=== PATIENT | female | born 1955 | race African-American/Black ===

== ENCOUNTER → 2017-06-30 | Outpatient (CLI) | payer BC ==
[2015-11-14 11:19] VITALS: BP 108/69
[~2017-06-30] MED LIST: ASPI325T11 PO; CARV6.252 PO; CLOP75TA PO; DILT240C32 PO; FURO20TA3 PO; GLIM4TAB2 PO; HYDR12.58 PO; INSU100I17 SQ; INSU100I27 SQ; INSU100V8 SQ; LISI-338 PO; LOSA50TA6 PO; METF500T4 PO; SIMV40TA3 PO
--- NOTE | 2017-06-30 12:18 | CARD ---
APPROVED REPORT EXAM: Two-dimensional and M-mode echocardiogram with Doppler and color Doppler. Other Information Quality : Average INDICATION Cardiac Disease: CAD 2D DIMENSIONS Left Atrium(2D)3.2 (1.6-4.0cm)IVSd1.3 (0.7-1.1cm) Aortic Root(2D)2.6 (2.0-3.7cm)LVDd3.6 (3.9-5.9cm) LVOT Diameter1.9 (1.8-2.4cm)PWd1.2 (0.7-1.1cm) LVDs2.4 (2.5-4.0cm)FS (%) 34.9 % SV35.7 mlLVEF(%)65.1 (>50%) Aortic Valve AoV Peak Gerry.169.8cm/sAoV VTI28.9cm AO Peak GR.11.5mmHgLVOT Peak Gerry.100.5cm/s AO Mean GR.6mmHgAVA (VMAX)1.62cm2 VICKEY (VTI)1.80cm2 Mitral Valve MV E Tcjhkhki59.8cm/sMV DECEL NOUI539rk MV A Byzwhsud938.9cm/sE/A Ratio0.8 Tricuspid Valve TR P. Tmhtyxcr595qt/sRAP NVHEYNIG6glQm TR Peak Gr.20ipGwTDUS92rlGd LEFT VENTRICLE The left ventricle is normal size. There is mild concentric left ventricular hypertrophy. Left ventri sarah systolic function is normal. The Ejection Fraction is 55-60%. There is normal LV segmental wall m otion. Transmitral Doppler flow pattern is normal for age. RIGHT VENTRICLE The right ventricle is normal size. The right ventricular systolic function is normal. ATRIA The left atrium size is normal. The right atrium size is normal. The interatrial septum is intact wit h no evidence for an atrial septal defect or patent foramen ovale as noted on 2-D or Doppler imaging. AORTIC VALVE The aortic valve is calcified but opens well. Doppler and Color Flow revealed no significant aortic r egurgitation. There is no significant aortic valvular stenosis. MITRAL VALVE The mitral valve is calcified but opens well. There is no evidence of mitral valve prolapse. There is no mitral valve stenosis. Doppler and Color Flow revealed no mitral valve regurgitation noted. TRICUSPID VALVE The tricuspid valve is normal in structure and function. Doppler and Color Flow revealed mild tricusp id regurgitation. There is no pulmonary hypertension. The PA pressure was estimated at 23 mmHg. There is no tricuspid valve prolapse or vegetation. There is no tricuspid valve stenosis. PULMONIC VALVE The pulmonary valve is normal in structure and function. Doppler and Color Flow revealed no pulmonic valvular regurgitation. There is no pulmonic valvular stenosis. GREAT VESSELS The aortic root is normal in size. The ascending aorta is normal in size. The IVC is normal in size a nd collapses >50% with inspiration. PERICARDIAL EFFUSION There is no pleural effusion. There is no evidence of significant pericardial effusion. Critical Notification Critical Value: No <Conclusion> The left ventricle is normal size. Left ventricle systolic function is normal. The Ejection Fraction is 55-60%. There is mild concentric left ventricular hypertrophy. There is no significant aortic valvular stenosis. Doppler and Color Flow revealed no significant aortic regurgitation. Doppler and Color Flow revealed no mitral valve regurgitation noted. Doppler and Color Flow revealed mild tricuspid regurgitation. The PA pressure was estimated at 23 mmHg.
== END | disposition home or self-care (01) ==
LOC: ECHO 09:37
PROVIDERS: ATTEND Internal Medicine Cardiovascular Disease
DX: I25.10 Atherosclerotic heart disease of native coronary artery without angina pectoris (principal); I51.7 Cardiomegaly
CPT/HCPCS: 93306